=== PATIENT | female | born 2000 | race Two or more races ===

== ENCOUNTER → 2025-04-11 | Outpatient (CLI) | payer MEDICAID, SELFPAY ==
--- NOTE | 2025-04-11 13:05 | XR_ITS ---
Examination: Wrist, left 3 views Technique: Wrist AP, oblique, lateral 3 views Date and time of exam: April 11, 2025 1337 hours INDICATIONS: Wrist pain one year. FINDINGS: Mild osteopenia. Mild narrowing radiocarpal and intercarpal joints No erosive arthritis No fracture No avascular necrosis IMPRESSION: No fracture No avascular necrosis
== END | disposition home or self-care (01) ==
PROVIDERS: PCP Family Medicine; Referring Provider Nurse Practitioner Gerontology; Visit Provider Nurse Practitioner Gerontology
DX: M25.532 Pain in left wrist (principal)
CPT/HCPCS: 73110

== ENCOUNTER → 2025-06-17 | Outpatient (CLI) | payer MEDICAID, SELFPAY ==
--- NOTE | 2025-06-17 13:15 | XR_ITS ---
Examination: MRI left wrist, without contrast Date and time of exam: June 17, 2025 1342 hours INDICATIONS: Palpable lump left breast note is beginning 10 months ago Technique: Multiple axial sagittal and coronal images of the left wrist have been obtained with the Siemens high-resolution 1.5 [employer] MRI scanner. Images obtained include T2-weighted fat-suppressed sagittal sections, TR 3500, TE 46, T2 weighted coronal fat suppressed images, TR 3050, TE 84, T2-weighted transverse fat suppressed images, TR 3260, TE 63, proton density transverse images, TR 4720 TE 46, and T1 weighted coronal images, TR 560, TE 13. Findings: Adequate marrow signal distal radius distal ulna and carpal bones Intact triangular fibrocartilage Ganglion cyst on the ulnar side of the wrist arising near the triquetrum, septated, measuring 12 x 5 x 9 mm No scapholunate disassociation Flexor tendons are intact and the median nerve appears normal Extensor tendons are intact no tendinitis IMPRESSION: Septated ganglion cyst on the ulnar side of the wrist arising near the triquetrum, 12 x 5 x 9 mm
== END | disposition home or self-care (01) ==
LOC: SMRI 13:07
PROVIDERS: PCP Nurse Practitioner Gerontology; Referring Provider Nurse Practitioner Gerontology; Visit Provider Nurse Practitioner Gerontology
DX: M67.432 Ganglion, left wrist (principal)
CPT/HCPCS: 73221